=== PATIENT | male | born 1960 | race Hispanic/Latino ===

== ENCOUNTER 2021-06-27 07:52 | Day surgery (SDC) | payer MEDICAID ==
[~2021-06-27] VITALS: Ht 170.2 cm; Wt 68.0 kg
[2021-06-27 08:19] VITALS: BP 110/74
[2021-06-27] MEDS ORDERED: DOCU100C33 PO (08:51)
[2021-06-27] MEDS ORDERED: CLOP75TA32 PO (08:51)
[2021-06-27] MEDS ORDERED: ROSU40TA21 PO (08:51)
[2021-06-27] MEDS ORDERED: AMLO-257 PO (08:51)
[2021-06-27] MEDS ORDERED: AEC81 PO (08:51)
[2021-06-27] MEDS ORDERED: METF-444 PO (08:51)
[2021-06-27] MEDS ORDERED: 0.9%NACL 1000ML 1,000 ML IV ONE (09:09)
[2021-06-27] MEDS ORDERED: PROPOFOL 10 MG/ML 20ML VIAL IV ONE ×2 (09:29→09:33)
[2021-06-27 09:45] VITALS: BP 106/66
[2021-06-27 09:50] VITALS: BP 94/55
[2021-06-27 09:55] VITALS: BP 93/68
[2021-06-27 10:00] VITALS: BP 97/66
== END 2021-06-27 10:30 | disposition home or self-care (01) ==
LOC: DAH 07:52 → ENDO 07:52
PROVIDERS: ATTEND Internal Medicine Gastroenterology
DX: K22.2 Esophageal obstruction (principal); Z20.822 Contact with and (suspected) exposure to COVID-19; K22.70 Barrett's esophagus without dysplasia; K29.70 Gastritis, unspecified, without bleeding; I10 Essential (primary) hypertension; E11.9 Type 2 diabetes mellitus without complications; F41.9 Anxiety disorder, unspecified; E78.00 Pure hypercholesterolemia, unspecified; I25.2 Old myocardial infarction; I25.10 Atherosclerotic heart disease of native coronary artery without angina pectoris; E78.5 Hyperlipidemia, unspecified; Z88.3 Allergy status to other anti-infective agents; Z86.73 Personal history of transient ischemic attack (TIA), and cerebral infarction without residual deficits; Z79.82 Long term (current) use of aspirin; Z79.01 Long term (current) use of anticoagulants; Z79.899 Other long term (current) drug therapy
CPT/HCPCS: 43239; 82948; 87635; 88305; 93005; A4215 ×2; A4221; A4222; A4223; A4606; A4620; A4657; A4663; C9803; J3490 ×2; J7030; J2704